=== PATIENT | male | born 1985 | race Two or more races ===

== ENCOUNTER 2019-01-05 00:53 | Emergency (ER) | payer OTHER ==
[~2019-01-05] VITALS: Ht 170.2 cm; Wt 75.3 kg
[2019-01-05] MEDS ORDERED: LORAZEPAM INJ 2 MG/ML VIAL ONE (01:01)
[2019-01-05] MEDS ORDERED: DEXTROSE 50%-WATER 50 ML DISP.SYRIN ONE (01:09)
[2019-01-05] MEDS ORDERED: LORAZEPAM INJ 2 MG/ML VIAL IM ONE (01:30)
[2019-01-05] MEDS ORDERED: DEXTROSE 50%-WATER 50 ML DISP.SYRIN IVP ONE (01:30)
[2019-01-05 01:39] LABS: BASOPHILS # (AUTO) 0.1 /CMM (0.0-0.2); BASOPHILS % (AUTO) 0.8 % (0.0-2.0); EOSINOPHILS % (AUTO) 0.2 % (0.0-6.0); HEMATOCRIT 39 % (39-51); HEMOGLOBIN 13.5 g/dL (13.5-17.5); LYMPHOCYTES # (AUTO) 1.4 /CMM (0.8-4.8); LYMPHOCYTES % (AUTO) 14.6 % (20.0-44.0); MEAN CORPUSCULAR HGB CONC 35 g/dl (31.0-36.0); MEAN CORPUSCULAR VOLUME 90 fL (80-96); MONOCYTES # (AUTO) 0.9 /CMM (0.1-1.30); MONOCYTES % (AUTO) 9.3 % (2.0-12.0); NEUTROPHILS % (AUTO) 75.1 % (43.0-81.0); PLATELET COUNT (AUTO) 214 /CMM (150-450); RED BLOOD CELL COUNT(AUTO) 4.32 MIL/uL (4.5-6.0); WHITE BLOOD COUNT (AUTO) 9.3 K/uL (4.3-11.0)
[2019-01-05 01:46] LABS: CALCIUM, SERUM 8.6 mg/dL (8.5-10.1); CREATININE 0.9 mg/dL (0.6-1.3); POTASSIUM 3.5 mmol/L (3.5-5.1)
[2019-01-05 01:52] LABS: ALBUMIN 3.7 g/dL (3.4-5.0); BILIRUBIN,DIRECT 0.2 mg/dL (0.0-0.2); BILIRUBIN,TOTAL 0.7 mg/dL (0.2-1.0); TOTAL PROTEIN, SERUM 7.3 g/dL (6.4-8.2)
--- NOTE | 2019-01-05 01:54 | NUR ---
PT LIED ABOUT HIS NAME. PT STATED THAT HIS NAME WAS MELITON DIAZ AND HIS BIRTHDAY IS 1985. PT REFUSED CT AND XRAY. DR. POWERS IS AT THE BEDSIDE SPEAKING TO THE PT. PT STATED THAT HE IS HAVING PALPATATIONS AND IS WORRIED. DR. POWERS STATED THAT SHE CAN NOT HELP HIM WITHOUT THE WORKUP. PT AGREED.
--- NOTE | 2019-01-05 01:58 | NUR ---
XRAY DONE AT THE BEDSIDE.
--- NOTE | 2019-01-05 01:58 | NUR ---
PT IS LEAVING FOR CT VIA [facility].
--- NOTE | 2019-01-05 02:15 | NUR ---
PT RETURNED FROM CT.
[2019-01-05 03:09] LABS: APPEARANCE,URINE Clear (CLEAR); BILIRUBIN,URINE Negative (NEGATIVE); BLOOD, URINE Negative Ery/uL (NEGATIVE); COLOR,URINE Yellow (YELLOW); KETONES,URINE 15 (NEGATIVE); LEUKOCYTE ESTERASE ,URINE Negative (NEGATIVE); NITRITE, URINE Negative (NEGATIVE); PROTEIN,URINE Negative (NEGATIVE); UGLUCOSE 100 MG/DL mg/dL (NEGATIVE); UROBILINOGEN,URINE 0.2 EU/dL (0.2)
--- NOTE | 2019-01-05 03:22 | NUR ---
PT APPEARS TO BE RESTING COMFORTABLY WITH NO S/S OF PAIN OR DISTRESS. .
--- NOTE | 2019-01-05 03:36 | NUR ---
PT DENIES BEING HOMELESS. PT STATED THAT HE LIVES WITH HIS GIRLFRIEND.
--- NOTE | 2019-01-05 03:36 | NUR ---
PT REC'D A SHIRT AND A SWEATSHIRT. IV removed. Catheter intact and site benign. Pressure and 4x4 applied to site. No bleeding noted. Patient discharged to home in stable condition. Written and verbal after care instructions given. Patient verbalizes understanding of instruction. VSS
[2019-01-05 03:39] VITALS: BP 119/67
[2019-01-05 05:07] LABS: BACTERIA,URINE Rare /HPF (None Seen); RBC,URINE 0-2 /HPF (0-2); SQUAMOUS EPITHELIAL CELL,UR Rare /HPF (None Seen); WBC,URINE 0-2 /HPF (0-3)
== END 2019-01-05 03:36 | disposition home or self-care (01) ==
LOC: EDBD 00:55 → ER 00:55
DX: R00.2 Palpitations (principal); E11.649 Type 2 diabetes mellitus with hypoglycemia without coma; R56.9 Unspecified convulsions; Z76.5 Malingerer [conscious simulation]; Z88.8 Allergy status to other drugs, medicaments and biological substances
CPT/HCPCS: 36415; 70450; 71045; 80048; 80076; 80305; 80307; 81001; 82962 ×3; 84484; 85025; 85730; 93005 ×2; 96372; 96374; 99284; J2060; 81000-TC; G0480